=== PATIENT | female | born 1985 | race Hispanic/Latino ===

== ENCOUNTER 2017-08-04 22:00 | Emergency (ER) | payer SELFPAY ==
[2017-08-04] MEDS ORDERED: KETOROLAC TROMETHAMINE 30MG/ML ONE (22:41)
== END 2017-08-04 22:52 | disposition home or self-care (01) ==
LOC: EDH 22:00
DX: M54.32 Sciatica, left side (principal); Z72.0 Tobacco use
CPT/HCPCS: 96372; 99283; J1885

== ENCOUNTER 2022-06-17 15:26 | Emergency (ER) | payer BC ==
[~2022-06-17] VITALS: Ht 162.6 cm; Wt 62.6 kg
[2022-06-17] MEDS ORDERED: CEPH500B PO (19:18)
[2022-06-17] MEDS ORDERED: CEFTRIAXONE 1G VIAL IM SCH (19:30)
[2022-06-17 19:48] VITALS: BP 118/69
== END 2022-06-17 19:56 | disposition home or self-care (01) ==
LOC: EDH 15:26
DX: S66.811A Strain of other specified muscles, fascia and tendons at wrist and hand level, right hand, initial encounter (principal); L03.113 Cellulitis of right upper limb; X58.XXXA Exposure to other specified factors, initial encounter; Y93.89 Activity, other specified; Y92.89 Other specified places as the place of occurrence of the external cause; Y99.8 Other external cause status
CPT/HCPCS: 99284; 73100; 96372; J0696